=== PATIENT | male | born 1935 | race Two or more races ===

== ENCOUNTER 2024-09-03 23:01 | Emergency (ER) | payer MEDICARE, MEDICAID, SELFPAY ==
[2024-09-03 23:55] VITALS: BP 198/123; BP 220/106; PULSE 84; RESP 20; TEMP 36.9; O2SAT 95
--- NOTE | 2024-09-04 00:18 | XR_ITS ---
Examination: PA chest single view Technique: Upright PA chest single view Exam date and time: September 04, 2024 12:30 AM Comparison March 18, 2023 Indications: Shortness of breath today. 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
--- NOTE | 2024-09-04 00:19 | EDRME_ITS ---
Rapid Medical Screening Exam [facility] Arrival date/time: 09/03/24 23:01 89M with history of HTN, asthma BPH, and previous alcohol abuse presents to ED with 1 day of elevated BP and SOB. Patient denies URI symptoms. Chief Complaint: General Adult/Misc Complain Vital signs: Vital Signs Temperature 98.4 F 09/03/24 23:55 Pulse Rate 84 09/03/24 23:55 Respiratory Rate 20 09/03/24 23:55 Blood Pressure 198/123 H 09/03/24 23:55 Pulse Oximetry (%) 95 09/03/24 23:55 Oxygen Delivery Method Room Air 09/03/24 23:55
[2024-09-04 00:45] LABS: Basophils % (Auto) 1 % (0-2.5); Eosinophils # (Auto) 0.2 Thou/mm3 (0.0-0.5); Eosinophils % (Auto) 3 % (0-10); Hematocrit 42.4 % (41.0-53.0); Immature Granulocytes % (Auto) 0 % (0-0); Immature Granulocytes Auto 0.02 Thou/mm3 (0.00-0.00); Lymphocytes # (Auto) 0.8 Thou/mm3 (1.0-4.8); Lymphocytes % (Auto) 13 % (10-50); Mean Corpuscular Hemoglobin 27.2 pg (25.0-35.0); Mean Corpuscular Volume 82 fL (80-100); Monocytes # (Auto) 0.5 Thou/mm3 (0.0-0.8); Monocytes % (Auto) 9 % (0-12); Neutrophils # (Auto) 4.4 Thou/mm3 (1.8-7.7); Neutrophils % (Auto) 74 % (37-80); Nucleated Red Blood Cell % 0 /100 WBC (0); Platelet Count 141 Thou/mm3 (140-440); RDW Standard Deviation 42.1 fL (35.1-43.9); Red Blood Count 5.15 Miln/mm3 (4.50-5.90)
[2024-09-04 00:58] LABS: Partial Thromboplastin Time 26.8 Seconds (22.0-36.0); Prothrombin Time 11.4 Seconds (9.0-12.2)
[2024-09-04 01:02] LABS: Alanine Aminotransferase 12 U/L (10-49); Albumin, Serum 4.5 gm/dL (3.4-4.8); Albumin/Globulin Ratio 1.7 (1.2-2.2); Alkaline Phosphatase 59 U/L (46-116); Anion Gap 8 (7-16); Aspartate Amino Transferase 24 U/L (0-34); BUN/Creatinine Ratio 14 Ratio (12-20); Bilirubin,Total 1.3 mg/dL (0.3-1.2); Blood Urea Nitrogen 13 mg/dL (9-23); Calcium 9.7 mg/dL (8.3-10.6); Calcium (Corrected) 9.7 mg/dL (8.5-10.1); Carbon Dioxide 26.1 mMol/L (20.0-31.0); Chloride 105 mMol/L (98-107); Creatinine (Component) 0.9 mg/dL (0.6-1.3); Globulin 2.7 gm/dL (2.3-3.5); Glucose 110 mg/dL (74-106); Osmolality,Calculated 278 (275-295); Potassium 4.2 mMol/L (3.4-5.1); Sodium 139 mMol/L (136-145); Total Protein 7.2 gm/dL (5.7-8.2); Troponin I < 0.020 ng/mL (0.0-0.045); eGFR > 60 See Note
[2024-09-04 01:28] LABS: B-Type Natriuretic Peptide 75 pg/mL (0-100)
[2024-09-04 01:52] VITALS: BP 217/103; PULSE 70; RESP 19; TEMP 36.6; O2SAT 95
[2024-09-04 02:06] VITALS: BP 183/91; PULSE 66; RESP 28; O2SAT 95
--- NOTE | 2024-09-04 02:14 | PD.EDADULT ---
ED General RME/HPI General Chief complaint: General Adult/Misc Complain Stated complaint: HIGH BP Arrival date/time: 09/03/24 23:01 RME / HPI RME / HPI narrative: 09/03/24 23:01 89M with history of HTN, asthma BPH, and previous alcohol abuse presents to ED with 1 day of elevated BP and SOB. Patient denies URI symptoms. ------- Dr. Antonio?s Main ED Evaluation: 89yo male with a history of HTN, asthma, BPH accompanied by his son presents to the ED for a chief complaint of elevated blood pressure. Son states the patient took his morning BP medications, but not his night medications due to the patient not being at his house. Patient endorsed to his son that he was having a headache and shortness of breath, so the son brought him in for evaluation. Patient denies any N/V or any other associated symptoms. No known allergies. Patient is on oxygen PRN. Related Data Home Medications ?Medication ?Instructions ?Recorded ?Confirmed sucralfate 1 gram tablet 1 mg PO QID 03/18/23 03/18/23 Previous Rx's ?Medication ?Instructions ?Recorded amlodipine 10 mg tablet 10 mg PO QDAY #30 tabs 03/08/23 atorvastatin 20 mg tablet 20 mg PO HS #30 tabs 03/08/23 lisinopril 40 mg tablet 40 mg PO QDAY #30 tabs 03/08/23 aspirin 81 mg tablet,delayed 81 mg PO DAILY #30 tabs 03/21/23 release pantoprazole 40 mg tablet,delayed 40 mg PO BID #60 tabs 03/21/23 release Allergies Allergy/AdvReac Type Severity Reaction Status Date / Time No Known Allergies Allergy Verified 03/06/23 13:16 Review of Systems Review of Systems Systems Reviewed: All systems reviewed, normal except as documented Past Medical History Past Medical History NEUROLOGIC: Negative Seizures CARDIAC: Positive Hypertension; Negative Congestive Heart Failure RESPIRATORY: Positive Asthma; Negative Chronic Obstructive Pulmonary Disease (COPD) GASTROINTESTINAL: Positive Gastrointestinal Disorders (HERNIA) GENITOURINARY: Positive Benign Prostatic Hyperplasia; Negative Renal Disease ENT: Positive Cataracts (RACHANA) ENDOCRINE: Negative Diabetes Mellitus Type 1 or Diabetes Mellitus Type 2 PSYCHO/SOCIAL: Positive Anxiety OTHER HISTORY: Positive Blood Transfusions; Negative Hospitalization, Autoimmune Disease, Down Syndrome, Developmental Delay, Shingles, Falls, Blood Transfusion Reaction or Anesthesia Reactions Social History SMOKING STATUS: Never smoker ED Exam Narrative Physical exam: GENERAL APPEARANCE: alert and oriented x 4, well-developed, well-nourished, no acute distress VITALS: All vitals were reviewed and the pulse ox is 95% on room air, which is normal according to my interpretation. HEENT: Normocephalic, atraumatic; pupils equal, round, reactive to light; EOMI; mucous membranes pink, moist; oropharynx clear NECK: Supple LUNGS: CTABL; no wheezes, no rales, no rhonchi HEART: Regular rate, regular rhythm; normal S1, S2; no murmurs ABDOMEN: non distended; soft BACK: no CVA tenderness EXTREMITIES: atraumatic; no edema NEUROLOGIC: awake; alert and oriented x4; cranial nerves II-XII grossly intact; no focal sensory or motor deficits PSYCHIATRIC: appropriate mood and affect SKIN: warm, dry, normal color; no rashes Course Quality Measures none Orders Category Date Time Status EKG (ED ONLY) *Do not use* NOW Care 09/03/24 23:56 Completed EKG (ED Only) Stat Exams 09/03/24 23:56 Ordered XR chest 1V portable Stat Exams 09/04/24 00:18 Taken B-Type Natriuretic Peptide Stat Lab 09/04/24 00:38 Completed CBC Stat Lab 09/04/24 00:38 Completed Comprehensive Metabolic Panel Stat Lab 09/04/24 00:38 Completed INR [Prothrombin Time with INR] Stat Lab 09/04/24 00:38 Completed PTT [Partial Thromboplastin Time] Stat Lab 09/04/24 00:38 Completed Troponin I Stat Lab 09/04/24 00:38 Completed Vital Signs Vital signs: Vital Signs Temperature 98.4 F 09/03/24 23:55 Pulse Rate 84 09/03/24 23:55 Respiratory Rate 20 09/03/24 23:55 Blood Pressure 198/123 H 09/03/24 23:55 Pulse Oximetry (%) 95 09/03/24 23:55 Oxygen Delivery Method Room Air 09/03/24 23:55 [facility] Patient data External records reviewed:: [facility] previous records (Per chart review, patient was seen here on 08/28/23 for insomnia.) Clinical information provided by:: patient Social determinants that could affect healthcare access:: none Patient has the following chronic illnesses:: HTN, asthma, BPH How is presenting disease/condition affected by chronic disease/condition?: uneffected by Evaluation data The following diagnostics were reviewed and interpreted by me:: lab results and radiology exam(s) Lab and/or radiology exams considered but not ordered:: none Interpretation Summary: CBC is normal, PT and INR are normal, PTT is normal, CMP is normal, troponin is normal, BNP is normal, according to my interpretation. CXR shows a large hiatal hernia with air levels in the chest, no infiltrates, no pleural effusions, according to my interpretation. Medications Medications considered but not ordered:: none Medication administrations:: none Consultations Consultation(s) initiated? (list below): No Diagnosis Differential Diagnosis ED Complaint MDM: hypertensive crisis, hypertensive emergency, CHF, pulmonary hypertension Most likely diagnosis given after review of the tests above:: Other DDx: subarachnoid hemorrhage, hypertensive headache Final Dx: see below Admission Indicated Admission indicated?: not indicated Explain why admission is indicated or not indicated:: Admission criteria not met. Patient's symptoms have resolved. He is stable to be discharged home. Admission Request Was there a request for admission?: No Disposition Plan Disposition Plan: Discharge Discharge Attestation Discharge Attestation: The patient and all family members were given an opportunity to ask questions and understood the discharge instructions. Discharge instructions specifically effects, indications for sooner follow up or return to the emergency department, and the expected course of current diagnosis. Patient condition: Stable Medical Decision Making MDM Narrative MDM Narrative: Scribe Attestation: 09/04/24 - Missy Guerrero am scribing for and in the presence of Dr. Antonio. Differential Diagnosis Differential Diagnosis: hypertensive crisis, hypertensive emergency, CHF, pulmonary hypertension Lab Data 09/04/24 00:38 09/04/24 00:38 Labs: Lab Results 09/04/24 Range/Units 00:38 WBC 6.0 (3.8-10.6) Thou/mm3 RBC 5.15 (4.50-5.90) Miln/mm3 Hgb 14.0 (13.5-16.0) g/dL Hct 42.4 (41.0-53.0) % MCV 82 (80-100) fL MCH 27.2 (25.0-35.0) pg MCHC 33.0 (31.0-37.0) g/dl RDW Std Deviation 42.1 (35.1-43.9) fL Plt Count 141 (140-440) Thou/mm3 Neut % (Auto) 74 (37-80) % Lymph % (Auto) 13 (10-50) % Mayes % (Auto) 9 (0-12) % Eos % (Auto) 3 (0-10) % Baso % (Auto) 1 (0-2.5) % Neut # (Auto) 4.4 (1.8-7.7) Thou/mm3 Lymph # (Auto) 0.8 L (1.0-4.8) Thou/mm3 Mayes # (Auto) 0.5 (0.0-0.8) Thou/mm3 Eos # (Auto) 0.2 (0.0-0.5) Thou/mm3 Baso # (Auto) 0.0 (0.0-0.2) Thou/mm3 Immature Gran # (Auto) 0.02 H (0.00-0.00) Thou/mm3 Absolute Nucleated RBC 0.00 (0.00-0.00) Thou/mm3 Immature Gran % 0 (0-0) % Nucleated RBC % 0 (0) /100 WBC PT 11.4 (9.0-12.2) Seconds INR 1.0 (0.9-1.3) APTT 26.8 (22.0-36.0) Seconds Sodium 139 (136-145) mMol/L Potassium 4.2 (3.4-5.1) mMol/L Chloride 105 (98-107) mMol/L Carbon Dioxide 26.1 (20.0-31.0) mMol/L Anion Gap 8 (7-16) BUN 13 (9-23) mg/dL Creatinine 0.9 (0.6-1.3) mg/dL Estim Creat Clear Calc Not Performed. eGFR > 60 (60 - ) See Note BUN/Creatinine Ratio 14 (12-20) Ratio Glucose 110 H (74-106) mg/dL Calculated Osmolality 278 (275-295) Calcium 9.7 (8.3-10.6) mg/dL Corrected Calcium 9.7 (8.5-10.1) mg/dL Total Bilirubin 1.3 H (0.3-1.2) mg/dL AST 24 (0-34) U/L ALT 12 (10-49) U/L Alkaline Phosphatase 59 (46-116) U/L Troponin I < 0.020 (0.0-0.045) ng/mL B-Natriuretic Peptide 75 (0-100) pg/mL Total Protein 7.2 (5.7-8.2) gm/dL Albumin 4.5 (3.4-4.8) gm/dL Globulin 2.7 (2.3-3.5) gm/dL Albumin/Globulin Ratio 1.7 (1.2-2.2) Discharge Plan Plan Patient Disposition: HOME (Self Care) Disposition Comment: Stable for discharge Patient condition on transfer: Stable Prescriptions/Referrals Prescriptions/Med Rec: No Action amlodipine 10 mg tablet 10 mg PO QDAY Qty: 30 0RF lisinopril 40 mg tablet 40 mg PO QDAY Qty: 30 0RF atorvastatin 20 mg tablet 20 mg PO HS Qty: 30 0RF sucralfate 1 gram tablet 1 mg PO QID aspirin 81 mg Tablet,Delayed Release (Dr/Ec) 81 mg PO DAILY Qty: 30 0RF pantoprazole 40 mg Tablet,Delayed Release (Dr/Ec) 40 mg PO BID Qty: 60 2RF Referrals: Champ Neely MD [Primary Care Provider] - In 1 week Problem List Clinical Impression: Benign essential hypertension, Headache due to hypertension, Hernia, hiatal Patient/Caregiver Discharge Instructions Discharge Activity: activity as tolerated Education Materials: What Is a Hiatal Hernia?, ED Hypertension, Established, ED Hiatal Hernia Additional Instructions: Please return to the emergency department for any worsening or any further medical problems Otherwise you should follow-up with your primary care doctor within the next several days Print Language: Citizen Of [place] Stand Alone Forms: Olga Award Info., Patient Portal Info Letter
[2024-09-04 02:41] VITALS: BP 180/86; PULSE 66; RESP 18; TEMP 36.7; O2SAT 95
== END 2024-09-04 02:43 | disposition home or self-care (01) ==
PROVIDERS: Physician Assistant; Emergency Provider Emergency Medicine; PCP Family Medicine
DX: I10 Essential (primary) hypertension (principal); K46.9 Unspecified abdominal hernia without obstruction or gangrene; J45.909 Unspecified asthma, uncomplicated; F10.10 Alcohol abuse, uncomplicated
CPT/HCPCS: 36415; 71045; 80053; 83880; 84484; 85025; 85610; 85730; 93005; 99283

== ENCOUNTER → 2025-01-07 | Outpatient (CLI) | payer MEDICARE, MEDICAID, SELFPAY ==
[2025-01-07 09:48] LABS: Basophils % (Auto) 0 % (0-2.5); Eosinophils % (Auto) 1 % (0-10); Hematocrit 39.3 % (41.0-53.0); Hemoglobin 13.3 g/dL (13.5-16.0); Immature Granulocytes % (Auto) 0 % (0-0); Immature Granulocytes Auto 0.02 Thou/mm3 (0.00-0.00); Lymphocytes # (Auto) 0.5 Thou/mm3 (1.0-4.8); Lymphocytes % (Auto) 11 % (10-50); Mean Corpuscular HGB Conc 33.8 g/dl (31.0-37.0); Mean Corpuscular Hemoglobin 27.9 pg (25.0-35.0); Mean Corpuscular Volume 83 fL (80-100); Monocytes # (Auto) 0.3 Thou/mm3 (0.0-0.8); Monocytes % (Auto) 6 % (0-12); Neutrophils # (Auto) 3.6 Thou/mm3 (1.8-7.7); Neutrophils % (Auto) 82 % (37-80); Nucleated Red Blood Cell % 0 /100 WBC (0); Platelet Count 116 Thou/mm3 (140-440); RDW Standard Deviation 40.8 fL (35.1-43.9); Red Blood Count 4.76 Miln/mm3 (4.50-5.90); White Blood Count 4.5 Thou/mm3 (3.8-10.6)
[2025-01-07 10:06] LABS: Alanine Aminotransferase 13 U/L (10-49); Albumin, Serum 4.2 gm/dL (3.4-4.8); Albumin/Globulin Ratio 1.8 (1.2-2.2); Alkaline Phosphatase 55 U/L (46-116); Anion Gap 8 (7-16); Aspartate Amino Transferase 21 U/L (0-34); BUN/Creatinine Ratio 21 Ratio (12-20); Blood Urea Nitrogen 17 mg/dL (9-23); Calcium 8.7 mg/dL (8.3-10.6); Calcium (Corrected) 8.7 mg/dL (8.5-10.1); Carbon Dioxide 27.2 mMol/L (20.0-31.0); Cardiac Risk Estimate 4.5 RATIO (4.0-6.7); Chloride 106 mMol/L (98-107); Cholesterol 156 mg/dL (132-200); Creatinine (Component) 0.8 mg/dL (0.6-1.3); Folate > 24.00 ng/mL (>5.38); Free T4 (Free Thyroxine) 1.04 ng/dL (0.89-1.76); Globulin 2.3 gm/dL (2.3-3.5); Glucose 109 mg/dL (74-106); HDL Cholesterol 35 mg/dL (40-60); LDL Cholesterol,Calculated 106 mg/dL (0-130); Osmolality,Calculated 283 (275-295); Sodium 141 mMol/L (136-145); Thyroid Stimulating Hormone 3.12 uIU/mL (0.55-4.78); Total Protein 6.5 gm/dL (5.7-8.2); Triglycerides 77 mg/dL (30-150); Vitamin B12 501 pg/mL (211-911); Vitamin D 25 Hydroxy Total 44.5 ng/mL (7.3-40.2); eGFR > 60 See Note
[2025-01-07 10:26] LABS: Glucose Estimated Average 111 mg/dL (80-131); Hemoglobin A1C 5.5 % Hgb (4.8-6.0)
[2025-01-17 06:52] LABS: Direct LDL* 118 mg/dL (<100)
== END | disposition home or self-care (01) ==
LOC: COPL 09:00
PROVIDERS: PCP Nurse Practitioner Family; Referring Provider Nurse Practitioner Family; Visit Provider Nurse Practitioner Family
DX: I10 Essential (primary) hypertension (principal); E55.9 Vitamin D deficiency, unspecified; R53.81 Other malaise; R53.83 Other fatigue; Z13.1 Encounter for screening for diabetes mellitus; Z13.29 Encounter for screening for other suspected endocrine disorder; Z13.220 Encounter for screening for lipoid disorders
CPT/HCPCS: 36415; 80053; 80061; 82306; 82607; 82746; 83036; 83721; 84439; 84443; 85025